=== PATIENT | female | born 1980 | race Caucasian/White ===

== ENCOUNTER 2018-11-14 09:36 | Emergency (ER) | payer MEDICAID ==
[~2018-11-14] VITALS: Ht 144.8 cm; Wt 73.5 kg
[2018-11-14 09:38] VITALS: Ht 144.8 cm; Wt 73.5 kg
[2018-11-14 10:25] VITALS: BP 149/73
== END 2018-11-14 10:25 | disposition home or self-care (01) ==
LOC: ED 09:36
DX: B86 Scabies (principal); I10 Essential (primary) hypertension; Z98.890 Other specified postprocedural states; Z90.89 Acquired absence of other organs